=== PATIENT | female | born 1950 | race Caucasian/White ===

== ENCOUNTER → 2017-04-27 | Outpatient (CLI) | payer OTHER | LOC: GIMAGING 08:37 | PROVIDERS: ATTEND Registered Nurse | DX: R05 Cough (principal); R50.9 Fever, unspecified | CPT/HCPCS: 71046-PO ==

== ENCOUNTER 2017-04-29 23:04 | Emergency (ER) | payer OTHER ==
--- NOTE | 2017-04-29 23:05 | EDPHY ---
H & P HPI/ROS: HPI CHIEF COMPLAINT: Cough HISTORY OF PRESENT ILLNESS: Patient very pleasant 66-year-old female, history of hypertension, CVA, thyroid disease, presents emergency room with worsening cough for the past 48 hr. Patient reports to me that she has been ill since 2 days before Tina with an upper respiratory tract type infection. She was recently seen at [facility] where she had a negative flu test and a normal chest x-ray. She presents emergency room as her cough is persistently gotten worse. She states she has a cough that is productive with some white sputum. No blood. Denies pleuritic pain. Denies history of PE DVT. She denies chest pain. She states that she has been using her albuterol inhaler but is not been helping. Upon arrival to the emergency room her vitals are stable. She does have a bronchitic sounding cough. Does complain of some right ear fullness. As well as a very mild sore throat. No history of cardiovascular disease except for hypertension, no history of PE or DVT. Past Medical History: Hypertension, CVA, thyroid disease Past Surgical History: No recent surgery Social History: Denies daily use of drugs alcohol tobacco products. Family History: Noncontributory ROS REVIEW OF SYSTEMS: A comprehensive 10 point review of systems is otherwise negative aside from elements mentioned in the history of present illness. Exam Constitutional appears well nontoxic, triage nursing summary reviewed, vital signs reviewed, awake/alert. Eyes normal conjunctivae and sclera, EOMI, PERRLA. HENT normal inspection, atraumatic, moist mucus membranes, no epistaxis, neck supple/ no meningismus, no raccoon eyes. Respiratory decreased breath sounds bilaterally, faint wheezing at the bases, bronchitic sounding cough. Cardiovascular rate normal, regular rhythm, no murmur, no edema, distal pulses normal. Gastrointestinal soft, non-tender, no rebound, no guarding, normal bowel sounds, no distension, no pulsatile mass. Genitourinary no CVA tenderness. Musculoskeletal no midline vertebral tenderness, full range of motion, no calf swelling, no tenderness of extremities, no meningismus, good pulses, neurovascularly intact. Skin pink, warm, & dry, no rash, skin atraumatic. Neurologic awake, alert and oriented x 3, AAOx3, moves all 4 extremities equally, motor intact, sensory intact, CN II-XII intact, normal cerebellar, normal vision, normal speech. Psychiatric normal mood/affect. Heme/Lymph/Immune no lymphadenopathy. Differential Diagnosis: Includes but is not limited to in a particular order acute bronchitis, reactive airway disease, pneumonia, viral syndrome, bacterial pneumonia, influenza Medical Decision Making: Plan for this patient chest x-ray two view, DuoNeb breathing treatment, check influenza, [place] for cough suppression, DuoNeb breathing treatment p.o. prednisone 60 mg and re-evaluate. Re-evaluation: [id number]: Chest x-ray reviewed shows no pneumonia. Bronchitis present. Patient is feeling much better after DuoNeb breathing treatment she has a bronchitic sounding cough on exam. Prescription provided for prednisone burst 60 mg. New albuterol inhaler. Azithromycin. And additionally guaifenesin. And [place]. She understands return emergency room if she has worsening symptoms questions or concerns Source: Patient Constitutional: Initial Vital Signs Temperature (C) 37.1 C 04/29/17 23:06 Heart Rate 103 H 04/29/17 23:06 Respiratory Rate 17 04/29/17 23:06 Blood Pressure 109/84 H 04/29/17 23:06 O2 Sat (%) 90 L 04/29/17 23:06 O2 Delivery Mode Room Air Allergies/Adverse Reactions: No Known Allergies Allergy (Unverified 04/29/17 23:13) Home Medications: Medication Instructions Recorded AZITHROMYCIN [Z-PACK] 250 mg PO DAILY #6 tab 04/29/17 Albuterol [Proventil Inhaler HFA 1 - 2 puffs IH Q4H #1 mdi 04/29/17 (*)] Hydrocodone/APAP 5/325 [[place] 1 - 2 tab PO Q4H PRN #10 tab 04/29/17 5/325] Levothyroxine 04/29/17 guaiFENesin [Guaifenesin ER] 600 mg PO BID #14 tab.er.12h 04/29/17 predniSONE 60 mg PO DAILY #15 tab 04/29/17 Medical Decision Making - Diagnostics Imaging Results: Imaging Impressions Chest X-Ray 04/29/17 23:26 Impression: Mild perihilar bronchitis, without a focal infiltrate, or substantial change from 04/27/2017. - Data Points Laboratory Results: 04/29/17 23:32 Nasal Influenza A PCR Pending Nasal Influenza B PCR Pending Medications Given: Discontinued Medications Hydrocodone Bitart/Acetaminophen ([place] 5/325) 1 tab PO EDNOW ONE Stop: 04/29/17 23:28 Last Admin: 04/29/17 23:34 Dose: 1 tab Albuterol/Ipratropium (Duoneb) 3 ml IH EDNOW ONE Stop: 04/29/17 23:27 Last Admin: 04/29/17 23:34 Dose: 3 ml Prednisone (Prednisone) 60 mg PO ONCE ONE Stop: 04/29/17 23:27 Last Admin: 04/29/17 23:34 Dose: 60 mg Departure - Departure Disposition: Home, Routine, Self-Care Clinical Impression: Acute bronchitis Qualifiers: Bronchitis organism: unspecified organism Qualified Code(s): J20.9 - Acute bronchitis, unspecified Condition: Good Instructions: Acute Bronchitis (ED) Additional Instructions: 1. Drink lots of fluids stay well-hydrated. 2. Antibiotic as prescribed. 3. Prednisone as prescribed. 4. [place] for cough suppression. 5. Return emergency room if you have worsening shortness of breath pain fever vomiting. Referrals: Patient,NotPresent [Primary Care Provider] - As per Instructions Prescriptions: Albuterol [Proventil Inhaler HFA (*)] 1 - 2 puffs IH Q4H #1 mdi AZITHROMYCIN [Z-PACK] 250 mg PO DAILY #6 tab guaiFENesin [Guaifenesin ER] 600 mg PO BID #14 tab.er.12h Hydrocodone/APAP 5/325 [[place] 5/325] 1 - 2 tab PO Q4H PRN #10 tab PRN Reason: Pain, Moderate predniSONE 60 mg PO DAILY #15 tab
[2017-04-29 23:13] VITALS: BP 109/84; PULSE 103; RESP 17; TEMP 98.8; O2SAT 90
[2017-04-29] MEDS ORDERED: predniSONE 20 MG TAB PO ONE (23:26)
[2017-04-29] MEDS ORDERED: IPRATROPIUM/ALBUTEROL 3 ML DEYVIAL IH ONE (23:26)
[2017-04-29] MEDS ORDERED: HYDROCODONE/APAP 5/325 TAB PO ONE (23:27)
== END 2017-04-30 00:13 | disposition home or self-care (01) ==
DX: J20.9 Acute bronchitis, unspecified (principal); I10 Essential (primary) hypertension; Z86.73 Personal history of transient ischemic attack (TIA), and cerebral infarction without residual deficits
CPT/HCPCS: 71046; 99284; J7512